=== PATIENT | female | born 1970 | race American Indian/Alaskan Native ===

== ENCOUNTER 2017-07-28 13:48 | Emergency (ER) | payer OTHER ==
[2017-07-28 14:21] LABS: Hematocrit 39.6 % (30.3-42.9); Hemoglobin 12.5 gm/dl (10.1-14.3); Mean Corpuscular HGB Conc 32 % (30-34); Mean Corpuscular Volume 77 fl (79-97); Platelet Count 279 K/mm3 (140-440); Red Blood Count 5.17 M/mm3 (3.65-5.03); Red Cell Distribution Width 14.5 % (13.2-15.2)
[2017-07-28 14:32] LABS: Mean Corpuscular Hemoglobin 24 pg (28-32)
[2017-07-28 14:49] LABS: Anion Gap 19 mmol/L; BUN/Creatinine Ratio 14; Blood Urea Nitrogen 10 mg/dL (7-17); Calcium 8.9 mg/dL (8.4-10.2); Carbon Dioxide 23 mmol/L (22-30); Chloride 95.8 mmol/L (98-107); Glucose 223 mg/dL (65-100); Potassium 3.8 mmol/L (3.6-5.0); Sodium 134 mmol/L (137-145)
[2017-07-28 15:01] LABS: Bacteria,Urine 1+ /HPF (Negative); Bilirubin,Urine NEG (Negative); Blood,Urine NEG (Negative); Ketones,Urine TR mg/dL (Negative); Leukocyte Esterase,Urine TR (Negative); Mucus,Urine FEW /HPF; Nitrite,Urine NEG (Negative); Protein,Urine <15 mg/dL mg/dL (Negative); Urobilinogen,Urine < 2.0 mg/dL (<2.0)
[2017-07-28 15:27] LABS: Basophils % (Manual) 0 % (0.0-1.8); Blastocytes % (Manual) 0 %
[2017-07-28 15:28] LABS: Diff Status Complete; Hypochromasia 1+
[2017-07-28 20:16] VITALS: BP 129/91
== END 2017-07-28 21:30 | disposition left against medical advice (07) ==
LOC: ED 13:48
DX: R73.9 Hyperglycemia, unspecified (principal); Z53.21 Procedure and treatment not carried out due to patient leaving prior to being seen by health care provider
CPT/HCPCS: 36415; 80048; 81001; 82805; 82962; 85007; 85025

== ENCOUNTER 2020-04-06 08:16 | Outpatient (CLI) | payer OTHER ==
--- NOTE | 2020-04-06 08:59 | XRay Report ---
RIGHT HIP 2 VIEWS INDICATION / CLINICAL INFORMATION: RIGHT HIP PAIN. COMPARISON: None available. FINDINGS: No significant skeletal abnormality Signer Name: Efrain Rangel MD FACR Signed: 04/06/2020 8:55 AM Workstation Name: [id number]
--- NOTE | 2020-04-06 09:00 | XRay Report ---
BILATERAL KNEES 4 VIEWS INDICATION / CLINICAL INFORMATION: BILATERAL KNEE PAIN. COMPARISON: None available. FINDINGS: Mild medial joint space narrowing bilaterally. No other significant skeletal abnormality Signer Name: Efrain Rangel MD FACR Signed: 04/06/2020 8:56 AM Workstation Name: [id number]
== END 2020-04-06 08:17 | disposition home or self-care (01) ==
LOC: XRAY 08:16
PROVIDERS: ATTEND Internal Medicine
DX: E11.9 Type 2 diabetes mellitus without complications (principal); F32.9 Major depressive disorder, single episode, unspecified; M32.9 Systemic lupus erythematosus, unspecified; M25.551 Pain in right hip; M25.562 Pain in left knee; M25.561 Pain in right knee